=== PATIENT | female | born 1945 | race Caucasian/White ===

== ENCOUNTER 2024-01-29 00:16 | Emergency (ER) | payer MEDICARE, SELFPAY ==
[2024-01-29 00:19] VITALS: BP 150/108; PULSE 100; RESP 16; TEMP 36.9; O2SAT 94; BMI 25.5
--- NOTE | 2024-01-29 00:27 | W.ED.AMS ---
HPI - Altered Mental Status General: Chief Complaint: Altered Mental Status Stated Complaint: AMS Time Seen by Provider: 01/29/24 00:20 Source: patient and police History of Present Illness: 78-year-old confused female. She was found by [facility]'s deputies to be driving on the wrong side of the highway outside of town. The patient is confused but has no complaints. She has no pain. She denies fever. She denies recent illness. She does believe she is in [facility]. Review of Systems Const: Denies: fever(s) Eyes: Denies: change in vision ENMT: Denies: throat pain Card: Denies: chest pain Resp: Denies: dyspnea GI: Denies: vomiting Neuro: Reports: confusion and behavioral changes; Denies: headache(s), difficulty walking or Slurred speech present Physical Exam Const: COMMON NORMALS: no acute distress GENERAL APPEARANCE: cooperative and frail appearing; not ill appearing HENMT: COMMON NORMALS: normocephalic, atraumatic and Normal external nose present HEAD & SCALP: normocephalic and atraumatic FACE & SINUS: normal facial exam and face symmetric NOSE: Normal external nose present Eye: COMMON NORMALS: Equal, round and reactive pupils present and EOMs intact bilaterally PUPIL: Yes Equal, round and reactive pupils present Neck/C-Spine: COMMON NORMALS: full ROM Chest: CHEST: Yes Symmetrical chest wall rise Resp: EFFORT & INSPECTION: Yes symmetric chest movement Cardio: COMMON NORMALS: regular rate and regular rhythm RATE: regular rate RHYTHM: regular rhythm GI: COMMON NORMALS: Normal to inspection, nondistended, normoactive bowel sounds present and Soft to palpation PALPATION: Yes Soft to palpation Extremity: COMMON NORMALS: no pedal edema Neuro: DENIA COMA SCALE: document GCS findings Denia coma scale eye opening: Spontaneous Denia coma scale verbal response: Confused Denia coma scale motor response: Obey commands [place] coma scale total score: 14 CRANIAL NERVES: Yes CN normal except as noted SPEECH: speech normal GAIT: Yes Normal gait present MOTOR EXAM: Normal motor muscle tone present throughout Skin: COMMON NORMALS: no rashes or lesions noted GENERAL SKIN EXAM: no rashes or lesions noted Course Vital Signs: Vital signs: Vital Signs Temperature 98.5 F 01/29/24 00:19 Pulse Rate 100 01/29/24 00:19 Respiratory Rate 16 01/29/24 00:19 Blood Pressure 150/108 01/29/24 00:19 Pulse Oximetry 94 01/29/24 00:19 Oxygen Delivery Me thod Room Air 01/29/24 00:19 MDM - Altered Mental Status Medical Decision Making This patient has no focal neurological deficits. She is clearly confused. Nursing staff spoke with the [facility]. She does note that she has a history of dementia. She has never done anything like this. We have called out to multiple family members, none of which have answered. She is afebrile. She is somewhat hypertensive otherwise vitals are stable. It appears she takes oxycodone chronically for pain. She does not appear overly intoxicated currently. Urine drug screen is negative. Head CT does not reveal any definite acute change. Chest x-ray is nonacute. CBC and BMP are nonremarkable. She has been cooperative. Vitals continue to be stable. Will continue to reach out to family members. Family has responded. They are coming later today to get the patient. They were encouraged to find an increased level of care for the patient given her apparent advancing dementia. Lab Data 01/29/24 00:53 01/29/24 00:53 Radiology Impressions Chest X-Ray 01/29/24 00:41 IMPRESSION: 1. No acute findings. 2. 7 mm suspect right lower lobe nodule or granuloma. Follow-up evaluation with nonemergent nonenhanced chest CT is recommended. Head CT 01/29/24 00:41 IMPRESSION: Focal round area of decreased attenuation noted in the right basal ganglia, possibly chronic. No priors available for comparison. Changes of an acute infarct may not be visible on CT for up to 24 to 48 hours. If this is of clinical concern, a follow up examination and/or MRI may be of benefit. Laboratory Results WBC 8.48 10^3/uL (3.29-11.43) 01/29/24 00:53 RBC 4.26 10^6/uL (3.85-5.65) 01/29/24 00:53 Hgb 14.10 g/dL (11.27-16.99) 01/29/24 00:53 Hct 43.4 % (36-47) 01/29/24 00:53 MCV 101.9 fl (85-98) H 01/29/24 00:53 MCH 33.1 pg (27-33) H 01/29/24 00:53 MCHC 32.5 g/dL (30-55) 01/29/24 00:53 RDW 11.9 % (12.1-15.1) L 01/29/24 00:53 Plt Count 308 10^3/cmm (157-399) 01/29/24 00:53 MPV 9.3 fL (7.4-10.4) 01/29/24 00:53 Neut % (Auto) 71.3 % 01/29/24 00:53 Lymph % (Auto) 18.8 % 01/29/24 00:53 Cottle % (Auto) 9.1 % 01/29/24 00:53 Eos % (Auto) 0.4 % 01/29/24 00:53 Baso % (Auto) 0.2 % 01/29/24 00:53 Neut # (Auto) 6.05 10^3/uL (1.8-7.7) 01/29/24 00:53 Lymph # (Auto) 1.6 10^3/uL (0.8-4.8) 01/29/24 00:53 Cottle # (Auto) 0.8 10^3/uL (0.2-0.9) 01/29/24 00:53 Eos # (Auto) 0.0 10^3/uL (0.0-0.8) 01/29/24 00:53 Baso # (Auto) 0.0 10^3/uL (0.0-0.1) 01/29/24 00:53 Nucleated RBC % (auto) 0 % 01/29/24 00:53 Nucleated RBCs # 0.0 /100WBC 01/29/24 00:53 Sodium 143 mmol/L (136-145) 01/29/24 00:53 Potassium 3.4 mmol/L (3.5-5.1) L 01/29/24 00:53 Chloride 103 mmol/L (98-107) 01/29/24 00:53 Carbon Dioxide 25 mmol/L (22-29) 01/29/24 00:53 Anion Gap 18.4 (5-19) 01/29/24 00:53 BUN 27 mg/dL (8-23) H 01/29/24 00:53 Creatinine 0.9 mg/dL (0.5-0.9) 01/29/24 00:53 GFR Calculation Not Reportable 01/29/24 00:53 Glucose 140 mg/dL (65-115) H 01/29/24 00:53 Calculated Osmolality 303 mOsm/kg (285-295) H 01/29/24 00:53 Calcium 9.5 mg/dL (8.5-10.5) 01/29/24 00:53 Total Bilirubin 0.4 mg/dL (0.15-1.2) 01/29/24 00:53 AST 16 U/L (0-32) 01/29/24 00:53 ALT 10 U/L (0-33) 01/29/24 00:53 Alkaline Phosphatase 88 U/L (35-105) 01/29/24 00:53 Total Protein 7.7 g/dL (6.6-8.7) 01/29/24 00:53 Albumin 4.5 g/dL (3.5-5.2) 01/29/24 00:53 Globulin 3.2 g/dL (1.3-4.6) 01/29/24 00:53 TSH 2.60 uIU/mL (0.27-4.20) 01/29/24 00:53 Urine Color Yellow (Yellow) 01/29/24 01:07 Urine Appearance Clear (CLEAR) 01/29/24 01:07 Urine pH 5 (5-7) 01/29/24 01:07 Ur Specific [place] 1.025 (1.005-1.030) 01/29/24 01:07 Urine Protein Neg (Negative) 01/29/24 01:07 Urine Glucose (UA) Norm (Normal) 01/29/24 01:07 Urine Ketones Negative (Negative) 01/29/24 01:07 Urine Blood Neg (Negative) 01/29/24 01:07 Urine Nitrate Negative (Negative) 01/29/24 01:07 Urine Bilirubin Neg (Negative) 01/29/24 01:07 Urine Urobilinogen Norm mg/dL (Negative) 01/29/24 01:07 Ur Leukocyte Esterase Negative (Negative) 01/29/24 01:07 Salicylates < 0.3 mg/dL (3-10) L 01/29/24 00:53 Urine Opiates Screen Negative ng/mL (Negative) 01/29/24 01:07 Acetaminophen < 5.0 ug/mL (10-30) L 01/29/24 00:53 Ur Barbiturates Screen Negative ng/mL (Negative) 01/29/24 01:07 Ur Phencyclidine Scrn Negative ng/mL (Negative) 01/29/24 01:07 Ur Amphetamines Screen Negative ng/mL (Negative) 01/29/24 01:07 U Benzodiazepines Scrn Negative ng/mL (Negative) 01/29/24 01:07 Urine Cocaine Screen Negative ng/mL (Negative) 01/29/24 01:07 U Marijuana (THC) Screen Negative ng/mL (Negative) 01/29/24 01:07 Ethyl Alcohol < 10 mg/dL (0-10) 01/29/24 00:53 All radiology interpretation(s) finalized by discharge Discharge Plan Discharge Patient Disposition: Home Clinical Impression: Dementia Condition: Stable Discharge Orders: Discharge ED (Routine); Ordered 01/29/24 Ordered By: Demario Lua Patient Instructions: Altered Mental Status (ED), Opioid Safety, Pain Management Activity Restrictions/Additional Instructions: Return for any problems or concerns. Coding Level of Care Code ED Transcribing Operators Supervisor for Rafael Contreras
--- NOTE | 2024-01-29 00:41 | XRR_ITS ---
PROCEDURE INFORMATION: Exam: XR Chest Exam date and time: 01/29/2024 12:46 AM Age: 78 years old Clinical indication: Other: AMS TECHNIQUE: Imaging protocol: Radiologic exam of the chest. Views: 1 view. COMPARISON: No relevant prior studies available. FINDINGS: Lungs: No consolidation. 7 mm right lower lobe nodule. Calcified granuloma noted in the left upper lung zone. Pleural spaces: Unremarkable. No pleural effusion. No pneumothorax. Heart/Mediastinum: No cardiomegaly. Bones/joints: Prior postsurgical changes noted in the lower cervical spine. XR/XR chest 1V portable [id number] IMPRESSION: 1. No acute findings. 2. 7 mm suspect right lower lobe nodule or granuloma. Follow-up evaluation with nonemergent nonenhanced chest CT is recommended.
--- NOTE | 2024-01-29 00:41 | ECG_ITS ---
[facility] Test Date: 2024-01-29 Pat Name: Josefina Walker Department: Room: Gender: Female [employer] Dipper: : 1945 Requested By: Demario Cook Order Number: [id number] Dotty MD: Evgeny Doshi M.D. Measurements Intervals [place] Rate: 85 P: 37 CA: 164 QRS: -38 QRSD: 89 T: 61 QT: 370 QTc: 440 Interpretive Statements SINUS RHYTHM WITH OCCASIONAL VENTRICULAR PREMATURE COMPLEXES LEFT AXIS DEVIATION [QRS AXIS < -30] LOW QRS VOLTAGE IN PRECORDIAL LEADS [QRS DEFLECTION < 1.0 mV IN CHEST LEADS] PATTERN CONSISTENT WITH PULMONARY DISEASE No previous ECG available for comparison Electronically Signed On 01-29-2024 8:46:29 SILVICULTURIST by Evgeny Doshi M.D. [id number]
--- NOTE | 2024-01-29 00:41 | CTR_ITS ---
PROCEDURE INFORMATION: Exam: CT Head Without Contrast Exam date and time: 01/29/2024 1:15 AM Age: 78 years old Clinical indication: Condition or disease; Other: AMS TECHNIQUE: Imaging protocol: Computed tomography of the head without contrast. Radiation optimization: All CT scans at this facility use at least one of these dose optimization techniques: automated exposure control; mA and/or kV adjustment per patient size (includes targeted exams where dose is matched to clinical indication); or iterative reconstruction. COMPARISON: No relevant prior studies available. RADIATION DOSE METRICS: Total DLP (mGy-cm): 1070 FINDINGS: Brain: There is cerebral atrophy. Periventricular and deep white matter hypodensities compatible with chronic microvascular ischemic changes. Focal round area of decreased attenuation noted in the right basal ganglia measuring 8-9 mm, possibly chronic. No priors available for comparison. Chronic appearing left basal ganglia lacunar infarct. No midline shift. No acute intracranial hemorrhage. Cerebral ventricles: No ventriculomegaly. Paranasal sinuses: Visualized sinuses are unremarkable. No fluid levels. Mastoid air cells: No mastoid effusion. Bones/joints: No acute fracture. Soft tissues: Unremarkable. CT/CT head wo con* [id number] IMPRESSION: Focal round area of decreased attenuation noted in the right basal ganglia, possibly chronic. No priors available for comparison. Changes of an acute infarct may not be visible on CT for up to 24 to 48 hours. If this is of clinical concern, a follow up examination and/or MRI may be of benefit.
[2024-01-29 01:07] LABS: Basophils % 0.2 %; Eosinophils % 0.4 %; Hematocrit 43.4 % (36-47); Lymphocytes # 1.6 10^3/uL (0.8-4.8); Lymphocytes % 18.8 %; Mean Corpuscular HGB Conc 32.5 g/dL (30-55); Mean Corpuscular Hemoglobin 33.1 pg (27-33); Mean Corpuscular Volume 101.9 fl (85-98); Mean Platelet Volume 9.3 fL (7.4-10.4); Monocytes # 0.8 10^3/uL (0.2-0.9); Monocytes % 9.1 %; Neutrophils # 6.05 10^3/uL (1.8-7.7); Neutrophils % 71.3 %; Nucleated Red Blood Cells % 0 %; Platelet Count 308 10^3/cmm (157-399); Red Blood Count 4.26 10^6/uL (3.85-5.65); Red Cell Distribution Width 11.9 % (12.1-15.1); White Blood Count 8.48 10^3/uL (3.29-11.43)
[2024-01-29 01:17] LABS: Add Urine Microscopic? NO; Charge for UA Resulting for Rev
[2024-01-29 01:18] LABS: Bilirubin Urine Neg (Negative); Blood Urine Neg (Negative); Glucose Urine UA Norm (Normal); Ketones Urine Negative (Negative); Leukocyte Esterase Urine Negative (Negative); Nitrate Urine Negative (Negative); Protein Urine Neg (Negative); Specific Gravity, Urine 1.025 (1.005-1.030); Urine Appearance Clear (CLEAR); Urine Color Yellow (Yellow); Urobilinogen Urine Norm (Negative); pH Urine 5 (5-7)
[2024-01-29 01:27] LABS: Amphetamines Screen Urine Negative (Negative); Barbiturates Screen Urine Negative (Negative); Benzodiazepines Screen Urine Negative (Negative); Cocaine Screen Urine Negative (Negative); Opiate Screen Urine Negative (Negative); PCP Screen Urine Negative (Negative); THC Screen Urine Negative (Negative)
[2024-01-29 01:34] LABS: Alanine Aminotransferase 10 U/L (0-33); Albumin Level 4.5 g/dL (3.5-5.2); Alkaline Phosphatase 88 U/L (35-105); Anion Gap 18.4 (5-19); Aspartate Amino Transferase 16 U/L (0-32); Blood Urea Nitrogen 27 mg/dL (8-23); Calcium 9.5 mg/dL (8.5-10.5); Carbon Dioxide 25 mmol/L (22-29); Chloride 103 mmol/L (98-107); Creatinine Clr Calc Pharmacy 41.5325; Globulin 3.2 g/dL (1.3-4.6); Glucose 140 mg/dL (65-115); Osmolality Calculated 303 mOsm/kg (285-295); Potassium 3.4 mmol/L (3.5-5.1); Sodium 143 mmol/L (136-145); Total Bilirubin 0.4 mg/dL (0.15-1.2); Total Protein 7.7 g/dL (6.6-8.7)
[2024-01-29 01:36] LABS: Acetaminophen < 5.0 ug/mL (10-30); Alcohol Level < 10 mg/dL (0-10); Salicylate < 0.3 mg/dL (3-10)
--- NOTE | 2024-01-29 05:07 | PC.NURSE ---
pt family contact this nurse attempted multiple times to reach family throughout the night. this nurse spoke to Vira Gray who is the pt landlord. she gave us MALINDA and PUSHPA starr who are the pts nephews. she also gave us Edwar murray who was residing with the pt and broke her foot so she was staying somewhere else. pt took chriss car keys and used her car. hermelinda feliciano rn spoke to krzysztof and she stated that her was out of town. this nurse spoke with pt niece in law at [phone] and she stated she would get back to me.
--- NOTE | 2024-01-29 08:31 | PC.NURSE ---
Provided breakfast for the patient, patient ate most of her breakfast. Prior to eating breakfast patient did have an episode of incontinence of urine and bowel. We had to clean patient up and clean her bed and room and put her in fresh disposable scrubs.
== END 2024-01-29 08:51 | disposition home or self-care (01) ==
PROVIDERS: Emergency Provider Emergency Medicine
DX: F03.90 Unspecified dementia, unspecified severity, without behavioral disturbance, psychotic disturbance, mood disturbance, and anxiety (principal)
CPT/HCPCS: 36415; 70450; 71045; 80053; 80306; 80307; 81003; 84443; 85025; 93005; 99285